=== PATIENT | female | born 1995 | race Caucasian/White ===

== ENCOUNTER 2018-12-30 17:51 | Inpatient (IN) | payer OTHER ==
[~2018-12-30] VITALS: Ht 167.6 cm; Wt 83.8 kg
[2018-12-30] VITALS (16 sets, daily range): BP systolic 114–145; BP diastolic 57–90
[2018-12-30] MEDS ORDERED: ACET1TAB37 PO (18:11)
[2018-12-30] MEDS ORDERED: PRENTAB9 PO (18:11)
--- NOTE | 2018-12-30 19:18 | HPE ---
DATE OF ADMISSION: 12/30/2018 HISTORY: A 23-year-old 3, para 0, abortus 1. Last menstrual period (LMP) 03/26/2018, estimated date of confinement (EDC) 12/31/2018 at 39 and 1, history of membrane stripping in the office, now having painful contractions. No vaginal loss or bleeding. Has occasionally old dried blood. PAST HISTORY: 2017: 40 weeks spontaneous vaginal delivery female, 7 pounds 9 ounces. 2018: At 12 weeks, spontaneous complete. LABORATORIES: A positive, HIV negative, hepatitis negative, rapid plasma reagin (RPR) negative, rubella immune. Varicella immune. Pap normal. Urine negative. Gonorrhea and chlamydia negative. 1-hour glucose 123. Group B Streptococcus (GBS) is negative. Blood pressure is 129/89, respirations is 16, pulse is 69, temperature is 98.2. Urine is not available. On examination, she appears quite distressed. She is bouncing on the ball. Symphysis fundus height is 40, vertex occiput anterior (OA), -4 station, posterior very thick, 1 cm. No vaginal loss or bleeding. Some old blood after stripping of the membranes. The rest the examination unremarkable. Category one strip. Normocephalic, atraumatic. NECK: Full range of motion. Pupils equal and reactive to light. Distal pulses are symmetric. No evidence of deep venous thrombosis (DVT), pulmonary embolism (PE), or superficial phlebitis. CHEST: Clear bilaterally bases. No wheezes or rhonchi. No costovertebral angle (CVA) tenderness. ABDOMEN: Soft. Four quadrant bowel sounds are noted. She has no rashes, lesions or pruritus. She does have tattoos on her arms. No arthralgias, myalgias or complaint of joint pain. No complaint cough, wheezes, shortness of breath or dyspnea on exertion. No bruising. No bleeding. Neurologically complete. No incontinence, urgency or frequency. No nausea, vomiting, diarrhea or constipation. No diabetic issues. No gynecologic issues. PAST MEDICAL AND SURGICAL HISTORY: Unremarkable. FAMILY HISTORY: Noncontributory. SOCIAL HISTORY: No tobacco. No alcohol. No recreational drugs. She is to a soldier. No domestic violence. She has good support system. Her mother is here for labor and delivery. IN SUMMARY: We have a term gestation, patient having contractions secondary to membrane stripping. We will evaluate her another hour, hour and a half. If there is change of her cervix, we will admit her; if not, pending a category one strip, we will send her home with precautions.
[2018-12-30] MEDS ORDERED: LACTATED RINGER'S 1000 ML IV ONE (20:15)
[2018-12-30] MEDS ORDERED: FENTANYL 2MCG/ML ROPIVACAINE 0.2% IN 0.9% NACL 100ML IVBAG As Ordered ONE (20:45)
[2018-12-30 20:46] LABS: HEMATOCRIT 37.2 % (36.0-47.0); HEMOGLOBIN 12.7 g/dl (12.0-15.5); MEAN CORPUSCULAR HEMOGLOBIN 31.3 pg (27.0-33.0); MEAN CORPUSCULAR HGB CONC 34.1 g/dl (32.0-36.5); MEAN CORPUSCULAR VOLUME 91.6 fl (80.0-96.0); PLATELET COUNT, AUTOMATED 169 10^3/uL (150-450); RED BLOOD COUNT 4.06 10^6/uL (4.00-5.40); WHITE BLOOD COUNT 13.5 10^3/uL (4.0-10.0)
[2018-12-30] MEDS ORDERED: LR 1,000 ML IV SCH (21:00)
[2018-12-30] MEDS ORDERED: ONDANSETRON 4MG/2ML VIAL (J2405) IV PRN (21:30)
[2018-12-30] MEDS ORDERED: ePHEDrine SULFATE 25 MG/5 ML(5MG/ML) SYRINGE IV PRN (21:30)
[2018-12-30] MEDS ORDERED: diphenhydrAMINE INJ 50MG/ML VIAL (J1200) IV PRN (21:30)
[2018-12-30] MEDS ORDERED: LACTATED RINGER'S 1000 ML IV PRN (21:30)
[2018-12-30] MEDS ORDERED: FENTANYL/ROPIVACAINE/NACL BAG 100 ML EPIDURAL SCH (21:30)
[2018-12-30] MEDS ORDERED: EPIDURAL COMMENT XX SCH (21:30)
[2018-12-30] MEDS ORDERED: REFRIGERATOR IV KEYS XX PRN (21:30)
[2018-12-30] MEDS ORDERED: NALOXONE INJ 0.4 MG/1 ML VIAL (J2310) IV PRN (21:30)
[2018-12-30] MEDS ORDERED: EPIDURAL/PCA KEYS XX PRN (21:30)
[2018-12-30] MEDS ORDERED: OXYTOCIN 30 UNITS IN 0.9% NaCl 500ML IV BAG (J2590) As Ordered ONE (22:48)
[2018-12-30 23:28] LABS: CORD GAS ABE V -1.4; CORD GAS HCO3 V 24.2 MEQ/L; CORD GAS O2 SAT V 42.7 %; CORD GAS PCO2 V 43.7 mmHg; CORD GAS PH V 7.361 UNITS; CORD GAS SBC V 21.8 MEQ/L; CORD GAS TCO2 V 25.5 MEQ/L
[2018-12-30 23:32] LABS: CORD GAS ABE A -1.2; CORD GAS HCO3 A 25.5 MEQ/L; CORD GAS PCO2 A 49.7 mmHg; CORD GAS PH A 7.328 UNITS; CORD GAS PO2 A 11.2 mmHg; CORD GAS SBC A 21.3 MEQ/L
[2018-12-30] MEDS: OXYTOCIN DRIP 30 UNITS in APPROPRIATE DILUENT 1 EA IV SCH (23:47)
[2018-12-31] MEDS ORDERED: ACETAMINOPHEN TAB 650MG DOSE (2X325MG) PO PRN
[2018-12-31] MEDS ORDERED: ANUSOL HC CREAM 30GM TOP PRN
[2018-12-31] MEDS ORDERED: RHOGAM 300 MCG (1500 IU) INJ (J2790) IM SCH
[2018-12-31] MEDS ORDERED: MEASLES,MUMPS,RUBELLA VACCINE INJ (MMR-II) (90707) SC SCH
[2018-12-31] MEDS ORDERED: DOCUSATE SODIUM 100 MG CAP PO PRN
[2018-12-31] MEDS ORDERED: OXYTOCIN INJ 10 UNITS/ML VIAL (J2590) IV ONE
[2018-12-31] MEDS ORDERED: IBUPROFEN 600 MG TAB PO PRN
[2018-12-31] MEDS ORDERED: MOM 30ML SUSPENSION UDC PO PRN
[2018-12-31] MEDS ORDERED: METHYLERGONOVINE MALEATE 0.2 MG TAB PO PRN
[2018-12-31] MEDS ORDERED: DIBUCAINE 1% OINTMENT 30GM TOP PRN
[2018-12-31 00:10] VITALS: BP 131/60
[2018-12-31 01:55] VITALS: BP 118/56
[2018-12-31] MEDS: ACETAMINOPHEN 500 MG TAB PO PRN ×2 (02:19→18:43)
[2018-12-31] MEDS: OXYTOCIN DRIP 30 UNITS in APPROPRIATE DILUENT 1 EA IV SCH (03:47)
[2018-12-31 06:00] VITALS: BP 132/71
[2018-12-31] MEDS: IBUPROFEN 800 MG TAB PO PRN ×3 (06:28→20:23)
[2018-12-31 07:19] LABS: HEMATOCRIT 35.6 % (36.0-47.0); HEMOGLOBIN 11.9 g/dl (12.0-15.5); MEAN CORPUSCULAR HEMOGLOBIN 30.3 pg (27.0-33.0); MEAN CORPUSCULAR HGB CONC 33.4 g/dl (32.0-36.5); MEAN CORPUSCULAR VOLUME 90.6 fl (80.0-96.0); PLATELET COUNT, AUTOMATED 171 10^3/uL (150-450); RED BLOOD COUNT 3.93 10^6/uL (4.00-5.40); WHITE BLOOD COUNT 14.6 10^3/uL (4.0-10.0)
[2018-12-31] MEDS: PRENATAL VITAMINS CHEWABLE TABLET PO SCH (09:02)
--- NOTE | 2018-12-31 16:31 | IPN ---
DATE: 12/30/2018 This lady is reevaluated at 2200 hours. She had her epidural in place, feeling well. Category one strip. On examination, she is found to be 8 cm dilated, 100% effaced, -1 station and artificial rupture of membranes (ARM) draining thick meconium particulate was noted. Occiput transverse. Our plan of management is to have neonatology available for resuscitation. We still anticipate a vaginal delivery. Safe to proceed.
[2018-12-31 18:00] VITALS: BP 124/76
[2019-01-01] MEDS: ACETAMINOPHEN 500 MG TAB PO PRN (00:46)
[2019-01-01 06:00] VITALS: BP 131/76
--- NOTE | 2019-01-01 06:11 | IPN ---
DATE: 12/30/2018 This lady was reevaluated 2 hours after she had come in. At that time her cervix had been unchanged. However on examination presently she has a category one strip, vertex presenting at -1 station, 100% effaced, 5 cm dilated with bulging membranes. Our assessment is that this patient is in active labor. We will admit her and the patient is requesting epidural. We anticipate vaginal delivery.
--- NOTE | 2019-01-01 07:11 | IPN ---
DATE: 12/30/2018 day #1. 23-year-old, 3, now para 2, admitted in spontaneous labor at 39 and 1 weeks' of gestation, a live male , 7 pounds 6 ounces, 3340 grams, Apgars of 5 and 9 at one and five minutes respectively. Had a cord tight around the neck, a lot of meconium. Dr. Nielsen in attendance for resuscitation. Arterial pH 7.32, base excess -1.2; venous pH 7.36, base excess -1.4. On her first day, we discussed phlebitis, cystitis, mastitis, endometritis, cellulitisl; diet, exercise and pain management; perineal and breast care. She is uncertain as to method of control, will discuss at the 6-week checkup. Blood pressure today is 132/71, respirations 18, pulse 84, temperature is 99.0. We are awaiting her day #1 hemoglobin. On admission, hemoglobin 12.7, hematocrit 37.2 and platelets were 169. Presently all questions are answered. She is breast-feeding. She is up and voiding, passing gas and has no other issues. She will not be 24 hours until 11:00 p.m. tonight. Therefore, discharge plan is for tomorrow morning. Medications were dispensed. All questions were answered.
--- NOTE | 2019-01-01 07:36 | DS.PDOC ---
Discharge Summary General Date of Admission Dec 30, 2018 at 20:02 Date of Discharge [id number] Discharge Summary ADMITTING DIAGNOSES: Active labor DISCHARGE DIAGNOSES: Same, HOSPITAL COURSE: Admitted and delivery uncomplicated, . course uncomplicated. DISCHARGE MEDICATIONS: Motrin, Lanolin DISCHARGE INSTRUCTIONS: Nothing in the vagina for 6 weeks. F/U in OBGYN clinic in 6-8 weeks. Sessions Vital Signs/I&Os Vital Signs Date Time Temp Pulse Resp B/P (MAP) Pulse Ox O2 Delivery O2 Flow Rate FiO2 01/01/19 06:00 98.0 101 16 131/76 (94) Discharge Medications Scheduled No.137/Iron/Folic Acd ( Vitamin Tablet) 1 Each Tablet, 1 TAB PO DAILY, (Reported) Miscellaneous Medications Acetaminophen (Acetaminophen ER) 650 Mg Tablet.er, 650 MG PO, (Reported) Allergies Coded Allergies: shellfish derived (Verified Allergy, Unknown, 12/30/18) FRANK MONTOYA MD Jan 01, 2019 07:36
--- NOTE | 2019-01-01 07:38 | IPNPDOC ---
Text Note Date of Service The patient was seen on 01/01/19. NOTE PPD2 States feeling well, pain controlled with prescribed meds. Baby bonding and feeding well. No heavy VB. Lochia slowing. Ambulatory. Tolerating PO without issues. Voiding spont. No CP/LP/SOB. VSSAF NAD A&O LE no C/C/E Ut at U-2, firm a/p: Doing well. Cont routine care. D/C today. Sessions VS,Kvng, I+O VSKvng, I+O Vital Signs Date Time Temp Pulse Resp B/P (MAP) Pulse Ox O2 Delivery O2 Flow Rate FiO2 01/01/19 06:00 98.0 101 16 131/76 (94) SESSIONS,FRANK Anand MD Jan 01, 2019 07:38
[2019-01-01] MEDS ORDERED: ACET1TAB55 PO (07:40)
[2019-01-01] MEDS ORDERED: IBUP80TA PO (07:40)
[2019-01-01] MEDS: PRENATAL VITAMINS CHEWABLE TABLET PO SCH (07:45)
[2019-01-01] MEDS: IBUPROFEN 800 MG TAB PO PRN (09:28)
--- NOTE | 2019-01-01 09:40 | DN ---
DATE: 12/30/2018 DELIVERY NOTE: This is a 40-year-old, 3, para 1, admitted in spontaneous active labor at 39 and 1 weeks of gestation. She had an epidural in place. She had an artificial rupture of membranes (AROM) draining heavy meconium particulate liquid. Dr. Nielsen was notified and was in attendance for resuscitation. She had a spontaneous vaginal delivery of a live male infant over an intact perineum weighing 7 pounds 6 ounces or 3340 grams. Cord around the neck was tight times two. Apgars 6 at one minute and 9 at five minutes. Arterial and venous pH was performed. Dr. Nielsen evaluated and there was nothing below the cords. The placenta delivered spontaneously thereafter. Three-vessels, membranes and tissues intact. She had a small little blood vessel on the right side of the vagina which was oversewn with #2-0 Vicryl on a [id number]. The uterus was contracted well down. The rest of the examination anatomically was normal. The patient and baby tolerating the procedure well.
== END 2019-01-01 11:50 | disposition home or self-care (01) | DRG 807 ==
LOC: M LDO 17:51 → M LDI 20:02 → M OBS 12-31 01:45
PROVIDERS: ADMIT Obstetrics & Gynecology; ATTEND Obstetrics & Gynecology
PROC: 10E0XZZ Delivery of Products of Conception, External Approach (ICD-10-PCS; principal; 2018-12-30)
PROC: 0HQ9XZZ Repair Perineum Skin, External Approach (ICD-10-PCS; 2018-12-30)
PROC: 10907ZC Drainage of Amniotic Fluid, Therapeutic from Products of Conception, Via Natural or Artificial Opening (ICD-10-PCS; 2018-12-30)
DX: O77.0 Labor and delivery complicated by meconium in amniotic fluid (principal); Z37.0 Single live birth; O09.523 Supervision of elderly multigravida, third trimester; O70.0 First degree perineal laceration during delivery; Z3A.39 39 weeks gestation of pregnancy